=== PATIENT | male | born 2000 | race African-American/Black ===

== ENCOUNTER 2021-01-30 23:55 | Emergency (ER) | payer OTHER ==
[~2021-01-30] VITALS: Ht 172.7 cm; Wt 63.5 kg
[2021-01-31 01:04] VITALS: BP 109/57
== END 2021-01-31 01:11 | disposition home or self-care (01) ==
LOC: ER 23:55
DX: S81.812A Laceration without foreign body, left lower leg, initial encounter (principal); W26.8XXA Contact with other sharp object(s), not elsewhere classified, initial encounter; Y93.89 Activity, other specified; Y92.89 Other specified places as the place of occurrence of the external cause; Y99.8 Other external cause status